=== PATIENT | female | born 1925 | race African-American/Black ===

== ENCOUNTER → 2016-06-24 | Outpatient (CLI) | payer OTHER ==
[~2016-06-24] MED LIST: ACETAMINOPHEN325 M1 PO; ACETAMINOPHEN650 M5 PO; ADULT LOW DOSE81 MG PO; ALEVE220 MG PO; ANTIVERT25 MG PO; ANUCORT-HC25 MG RE; APAP500; ARICEPT 5 MG TAB5 MG PO; ASPIR 8181 MG PO; ATORVASTATIN CA40 MG PO; B12INJ IM; B12INJ INJECTION; CARDIZEM CD300 MG PO; CARTIA XT180 M1 PO; CELEXA 20 MG TA20 M1 PO; CELEXA 20 MG TA20 MG PO; CELEXA10 MG PO; CIPROFLOXACIN500 M1 PO; CLONIDINE0.1 PO; COLACE100 MG PO; CYANOCOBALAMIN IM; Cartia XT PO; DEMADEX20 MG PO; DILTIAZEM 24HR180 MG PO; DILTIAZEM 24HR300 M2 PO; DILTIAZEM CD PO; DILTIAZEM ER240 M1 PO; DIPHENOXYLATE PO; DUONEB 2.5-0.5 M3 ML INH; DYAZIDE 37.5-21 EACH PO; ENOXAPARIN30 MG/0.1 SUBQ; FIORINAL 50-321 EACH PO; GEMFIBROZIL 60600 MG PO; GLIPIZIDE ER5 MG PO; GLUCAGON HCL1 MG IM; GLUCOPHAGE500 MG PO; GLUCOSE GEL38 GM PO; GLUCOSE1 EACH; GLYCOLAX POWDER17 G1 PO; HYDRALAZINE 5050 M1 PO; IRON325 PO; KLOR-CON 1010 MEQ PO; LASIX 40 MG TAB40 M2 PO; LEVAQUIN; LEVAQUIN 250 M250 MG PO; LEVOTHYROXIN0.025 MG PO; LIPITOR 20 MG T20 M1 PO; LISINOPRIL5 MG PO; MAXZIDE-25 MG1 EACH PO; MECLIZINE HCL12.5 MG PO; MECLIZINE HCL25 MG PO; MELOXICAM7.5 MG PO; METHIMAZOLE5 MG PO; MIRALAX255 GM PO; MOM PO; NAPHCON-A EYE D15 ML OP; NITROGLYCERIN0.4 MG SUBLING; NORCO 10-325 T1 EACH PO; NORVASC 5 MG TAB5 MG PO; NORVASC10 MG PO; NOVOLOG FL100 UNIT/M; NOVOLOG100 UNIT/1; ONGLYZA5 MG PO; OXYBUTYNIN ER 55 MG PO; PACERONE 200 M200 M1 PO; PANTOPRAZOLE SO40 M1 PO; PHAZYME180 MG PO; PHENERGAN 25 MG25 M1 PO; PLAVIX 75 MG TA75 MG PO; POTASSIUM20 PO; PRADAXA75 MG PO; PREDNISONE 20 M20 M1 PO; PREMARIN; PRILOSEC 20 MG20 MG PO; SENNA PO; SPIRONOLACTONE25 M1 GT; TENORMIN25 MG PO; TIZANIDINE HCL 22 M1 PO; TOPROL XL50 MG PO; TORSEMIDE20 MG PO; TRIAMTERENE-HC1 EAC1 PO; TRIAMTERENE/HCT1 CA1 PO; TYLENOL325 MG PO; ULTRAM 50MG TAB50 MG PO; VENTOLIN HFA 1818 GM INH; VICODIN 5-5001 EACH PO; VITAMIN D 5050000 I1 PO; XARELTO15 MG PO; ZUPLENZ4 MG PO; [UNRECOGNIZED DRUG - OTHER]
== END ==
LOC: RAD 10:20
DX: R06.02 Shortness of breath (principal); I77.1 Stricture of artery; I51.7 Cardiomegaly